=== PATIENT | male | born 1940 | race Caucasian/White ===

== ENCOUNTER → 2017-04-07 | Outpatient (REF) ==
[~2017-04-07] MED LIST: BLOOD PRESSURE; LEXAPRO 10MG10 MG PO; ZOCOR 10MG10 MG PO
== END ==
LOC: ZLAB.WCH 18:10
DX: Z01.89 Encounter for other specified special examinations (principal)
CPT/HCPCS: G0103

== ENCOUNTER → 2017-11-04 | Outpatient (REF) ==
[2017-11-04 15:32] LABS: THYROID STIMULATING HORMONE 2.74 uIU/mL (0.465-4.680)
== END ==
LOC: ZLAB.WCH 14:41
PROVIDERS: Internal Medicine
DX: Z01.89 Encounter for other specified special examinations (principal)

== ENCOUNTER → 2018-08-06 | Outpatient (REF) ==
[2018-08-06 19:42] LABS: THYROID STIMULATING HORMONE 3.16 uIU/mL (0.465-4.680)
[2018-08-06 20:29] LABS: PSA-TOTAL 0.94 ng/mL (0-4)
== END ==
LOC: ZLAB.WCH 18:56
PROVIDERS: Internal Medicine
DX: Z01.89 Encounter for other specified special examinations (principal)
CPT/HCPCS: G0103

== ENCOUNTER 2023-06-04 10:43 | Emergency (ER) | payer MEDICARE, OTHER ==
[~2023-06-04] VITALS: Ht 185.4 cm; Wt 84.1 kg
[2023-06-04 10:48] VITALS: TEMP 97.6
[2023-06-04 11:34] LABS: BASO # 0.1 K/mm3 (0.0-0.2); EOS # 0.3 K/mm3 (0.0-0.7); EOS % 2.7 % (0.0-4.0); GRAN # 5.2 K/mm3 (1.4-6.5); GRAN % 56.9 % (42.2-75.2); HEMATOCRIT 42.5 % (42.0-52.0); HEMOGLOBIN 13.9 g/dl (13.5-18.0); LYMPH # 2.6 K/mm3 (1.2-3.4); LYMPH % 28.7 % (20.0-51.0); MEAN CELL VOLUME 95 fl (80.0-100.0); MEAN CORPUSCULAR HEMOGLOBIN 31 pg (27-31); MEAN CORPUSCULAR HGB CONC 33 g/dl (33.0-37.0); MEAN PLATELET VOLUME 9.8 fl (7.4-10.4); MONO # 0.9 K/mm3 (0.1-0.6); MONO % 10.3 % (1.7-9.3); PLATELET COUNT 229 K/mm3 (130-400); RED BLOOD COUNT 4.46 M/mm3 (4.20-5.60); REDCELL DISTRIBUTION WIDTH-CV 12.5 % (11.5-14.5)
[2023-06-04 12:08] LABS: ALBUMIN 3.6 gm/dL (3.4-4.8); BILIRUBIN,TOTAL 0.9 mg/dL (0.2-1.2); CREATININE, serum 1.27 mg/dL (0.72-1.25); POTASSIUM 4.4 mmol/L (3.5-4.5); TOTAL PROTEIN 6.8 gm/dL (6.2-8.1)
[2023-06-04 13:25] LABS: COLLECTION METHOD CLEAN CATCH
[2023-06-04 13:46] LABS: SQUAMOUS EPITHELIAL 0-2 /hpf (0-10); URINE APPEARANCE Clear (CLEAR/HAZY); URINE BLOOD Negative (NEGATIVE); URINE COLOR Yellow (YELLOW); URINE GLUCOSE Negative (NEGATIVE); URINE KETONE Negative (NEGATIVE); URINE NITRATE Negative (NEGATIVE); URINE PROTEIN(semi-quant) Negative (NEGATIVE); URINE UROBILINOGEN 0.2 E.U/dL (0.2-1.0)
[2023-06-04 13:47] LABS: URINE RBC 0-2 /hpf (0-2)
[2023-06-04 14:02] VITALS: BP 141/83; PULSE 78
== END 2023-06-04 14:03 | disposition home or self-care (01) ==
LOC: COL.ER 10:43
PROVIDERS: Physician Assistant
DX: I10 Essential (primary) hypertension (principal)

== ENCOUNTER 2023-12-25 07:55 | Day surgery (SDC) | payer MEDICARE, OTHER ==
[~2023-12-25] VITALS: Ht 185.4 cm; Wt 83.0 kg
[2023-12-25] VITALS (15 sets, daily range): BP systolic 167–208; BP diastolic 81–96; PULSE 59–77; TEMP 98.1–98.6
[2023-12-25] MEDS ORDERED: ceFAZolin 2 G in Water For Injection,Sterile 20 ML IV SCH (08:15)
[2023-12-25] MEDS ORDERED: 1/2 NS 1,000 ML IV SCH (08:15)
[2023-12-25 08:40] LABS: HEMATOCRIT 41.3 % (42.0-52.0); MEAN CELL VOLUME 93 fl (80.0-100.0); MEAN CORPUSCULAR HEMOGLOBIN 32 pg (27-31); MEAN CORPUSCULAR HGB CONC 34 g/dl (33.0-37.0); MEAN PLATELET VOLUME 9.6 fl (7.4-10.4); PLATELET COUNT 218 K/mm3 (130-400); RED BLOOD COUNT 4.44 M/mm3 (4.20-5.60); REDCELL DISTRIBUTION WIDTH-CV 12.7 % (11.5-14.5)
[2023-12-25 08:46] LABS: INR 1.1 (0.8-3.0); PROTHROMBIN TIME 11.8 SECONDS (9.7-12.8)
[2023-12-25] MEDS ORDERED: TAMBOCOR50 MG PO (08:49)
[2023-12-25] MEDS ORDERED: THE MEDICINE S200 M2 PO (08:50)
[2023-12-25] MEDS ORDERED: FLORINEF ACETA0.1 MG PO (08:50)
[2023-12-25] MEDS ORDERED: PRISTIQ 50 MG T50 MG PO (08:51)
[2023-12-25 09:02] LABS: CALCIUM 9.2 mg/dL (8.4-10.2); CREATININE, serum 1.24 mg/dL (0.72-1.25); POTASSIUM 4.2 mEq/L (3.5-4.5)
[2023-12-25] MEDS ORDERED: NS 1,000 ML IV.SOLN. IR SCH (09:54)
[2023-12-25] MEDS ORDERED: Iohexol 350 - 100 ML VIAL IV ONE (09:55)
--- NOTE | 2023-12-25 09:59 | NUR ---
SEE MERGE FOR PROCEDURE DOCUMENTATION
[2023-12-25] MEDS ORDERED: Midazolam 2 MG/2 ML VIAL IV SCH (10:28)
[2023-12-25] MEDS ORDERED: fentaNYL 50 MCG/ML 2 ML VIAL IV SCH (10:28)
--- NOTE | 2023-12-25 11:15 | NUR ---
PT ON FLOOR FROM NURSING PROJECT COORDINATOR POST PACEMAKER, AT BEDSIDE. POST OP VITALS STARTED. SITE TO LEFT CHEST COVERED WITH GAUZE AND TAPE, CLEAN DRY AND INTACT. PT DENIES PAIN. LEFT ARM IN SLING. PT DENIES NEEDS AT THIS TIME. PT ORIENTED TO ROOM, CALL LIGHT AND BED. PT ADVISED TO CALL STAFF [facility] NEEDING TO AMBULATE TO BATHROOM. BED IN LOWEST POSITION, CALL LIGHT IN REACH
--- NOTE | 2023-12-25 11:20 | NUR ---
PATIENT ALERT AND ORIENTED, VSS. PATIENT TRANSFERRED TO BED VIA SLIDEBOARD AND POSITIONED FOR COMFORT. PATIENT TRANSPORTED VIA BED TO MEDICAL 357, SPOUSE BROUGHT TO BEDSIDE. PATIENT DENIES PAIN OR NAUSEA. VITAL SIGNS TAKEN ON ARRIVAL, VSS. PATIENT PROVIDED CALL LIGHT, BED TO LOWEST POSITION, X3 BEDRAILS IN PLACE. TRANSFER OF CARE REPORT TO RODGER Santizo.
[2023-12-25] MEDS ORDERED: Temazepam 15 MG CAP PO PRN (11:45)
[2023-12-25] MEDS ORDERED: Docusate Sodium 100 MG CAP PO PRN (12:00)
[2023-12-25] MEDS ORDERED: traMADol 50 MG TAB PO PRN (12:00)
[2023-12-25] MEDS ORDERED: Acetaminophen 500 MG TAB PO PRN (12:00)
--- NOTE | 2023-12-25 12:28 | NUR ---
THIS NURSE CALLED LISETH SHAHID, AND NOTIFIED HER OF PTS FLUCUATING SYSTOLIC BPS BEING 160-180S DURING POST OPS AND ASKED IF THEY WANTED PARAMETERS FOR PHYSICIAN NOTIFICATION. THIS NURSE WAS TOLD THAT THIS REFLECTS PTS BPS BEFORE ADMISSION AND THAT HIS BPS HAVE BEEN DROPPING WHEN STANDING. THIS NURSE VERBALIZED UNDERSTANDING AND NO NEW ORDERS AT THIS TIME.
[2023-12-25] MEDS ORDERED: Cephalexin 500 MG CAP PO SCH (14:00)
--- NOTE | 2023-12-25 20:40 | NUR ---
Patient resting in bed. Denies any pain at this time. Needs met. Assessment complete. IV in left AC flushes easily without complications. Dressing to left upper chest is CDI. Left arm sling readjusted. Call light and personal items in reach. Bed in low position.
[2023-12-25] MEDS ORDERED: Simvastatin 10 MG **** subs to Atorvastatin 5 MG PO SCH (21:00)
[2023-12-25] MEDS ORDERED: Atorvastatin 10 MG TAB PO SCH (21:00)
--- NOTE | 2023-12-25 21:04 | NUR ---
Dr. Del Castillo paged at this time.
--- NOTE | 2023-12-25 21:05 | NUR ---
Dr. Del Castillo called for BP of 189/92 @1916 and recheck BP @2040 was 208/93 with heart rate 71 and respirations 19. Recieved orders to only use bedside commode, give 10mg IV labetolol once, and change his VS to q8h to allow patient to rest over night.
[2023-12-26] VITALS (12 sets, daily range): BP systolic 101–175; BP diastolic 51–93; PULSE 68–84; TEMP 98.1–98.2
--- NOTE | 2023-12-26 05:03 | NUR ---
Radiology called to verify patient will get a CXR this am. Radiology confimed 2 view CXR is ordered for this am
--- NOTE | 2023-12-26 05:30 | NUR ---
Patient resting in bed. Denies any pain or needs this morning. Downloaded patients device. Patient recieved one 10mg dose of IV labetolol for BP systolic >200. Patients most recent BP this morning is 151/85. Patient is also only to use bedside commode and get up with assisst due to history of orthostatic hypotension. No other changes over night. Call light and personal items in reach. Bed in low position and bed alarm on.
[2023-12-26] MEDS ORDERED: Fludrocortisone 0.1 MG TAB PO SCH (07:00)
[2023-12-26] MEDS ORDERED: Escitalopram 10 MG TAB PO SCH (09:00)
[2023-12-26] MEDS ORDERED: CEPHALEXIN500 M1 PO (10:05)
--- NOTE | 2023-12-26 10:05 | NUR ---
ORTHOSTATICS ORDERED, PCT NOTIFIED
[2023-12-26] MEDS ORDERED: CORGARD20 MG PO (10:08)
--- NOTE | 2023-12-26 10:30 | NUR ---
PT LAYING IN BED UPON ENTERING, AT BEDSIDE. ASSESSMENT DONE, MEDS GIVEN PER ORDER. PRN TYLENOL GIVEN. LEFT CHEST PACEMAKER SITE CLEAN DRY AND INTACT, DRESSING REMOVED BY CARDIOLOGY AND STERISTRIPS IN PLACE. PT DENIES NEEDS. BED IN LOWEST POSITION, CALL LIGHT IN REACH
--- NOTE | 2023-12-26 12:10 | NUR ---
[facility] NOTIFIED OF UPDATED ORTHOSTATICS AND TOLD THIS NURSE TO NOT DISCHARGE PT AND THAT [facility] DRIVER WILL BE ON THE FLOOR TO ADJUST PACEMAKER
--- NOTE | 2023-12-26 13:10 | NUR ---
D: Dispatcher [facility] Department stopped by room on rounds. A: Pt was resting and content. 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 Dispatcher [facility] Department will follow up as needed.
--- NOTE | 2023-12-26 14:03 | NUR ---
IV AND TELE REMOVED, PT DRESSED IN PERSONAL CLOTHES. PT AND GIVEN DISCHARGE INSTRUCTIONS, BOTH VERBALIZED UNDERSTANDING. PT DENIES NEEDS AND EATING LUNCH IN CHAIR. PT INSTRUCTED TO CALL WHEN READY TO LEAVE
--- NOTE | 2023-12-26 14:15 | NUR ---
PT ESCORTED TO PERSONAL VEHICLE VIA WHEELCHAIR, HAS BELONGINGS, VIA WHEELCHAIR BY PCT TO PERSONAL VEHICLE
== END 2023-12-26 14:15 | disposition home or self-care (01) ==
LOC: COL.CAR 07:55 → MEDICAL 11:35 → COL.CAR 12-26 14:15
PROVIDERS: Internal Medicine Cardiovascular Disease
DX: I44.1 Atrioventricular block, second degree (principal); I44.0 Atrioventricular block, first degree; I95.1 Orthostatic hypotension
CPT/HCPCS: OP; C1785; C1894; C1898; J0665-JZ; J0688; J1920; J2250; J3010; J7030; Q9967